=== PATIENT | female | born 1950 | race Caucasian/White ===

== ENCOUNTER 2024-02-15 08:39 | Day surgery (SDC) | payer OTHER ==
[2024-02-10 14:45] VITALS: BMI 28.7
[2024-02-15] MEDS ORDERED: PROPOFOL 120 ML ONE (11:22)
[2024-02-15 11:44] VITALS: RESP 18; TEMP 97.4
[2024-02-15 12:14] VITALS: BP 118/70; PULSE 80
== END 2024-02-15 12:14 | disposition home or self-care (01) ==
LOC: FASU-ENDO 08:39
PROVIDERS: ATTEND Internal Medicine Gastroenterology
PROC: 0DB68ZX Excision of Stomach, Via Natural or Artificial Opening Endoscopic, Diagnostic (ICD-10-PCS; 2024-02-15)
PROC: 0DB48ZX Excision of Esophagogastric Junction, Via Natural or Artificial Opening Endoscopic, Diagnostic (ICD-10-PCS; 2024-02-15)
PROC: 0DB98ZX Excision of Duodenum, Via Natural or Artificial Opening Endoscopic, Diagnostic (ICD-10-PCS; principal; 2024-02-15 11:17)
DX: K29.50 Unspecified chronic gastritis without bleeding (principal); K20.90 Esophagitis, unspecified without bleeding
CPT/HCPCS: 88305-TC; 88342-TC